=== PATIENT | female | born 1955 | race Two or more races ===

== ENCOUNTER 2023-08-30 15:18 | Inpatient (IN) | payer OTHER ==
[~2023-08-30] VITALS: Ht 165.1 cm; Wt 139.7 kg
[~2023-08-30 15:18] MED LIST: BICILLIN; CATAFLAM50 MG PO; COZAAR50 MG PO; ORPH100T PO; VYTORIN 10-201 EACH PO
[2023-08-30] MEDS ORDERED: PEPCID AC20 MG PO (15:36)
[2023-08-30] MEDS ORDERED: NORVASC5 MG PO (15:36)
[2023-08-30 16:52] LABS: HEMATOCRIT 30.2 % (36.0-45.00); HEMOGLOBIN 10.2 g/dL (12.0-15.00); MEAN CELL VOLUME 93.6 fL (80.00-100.00); MEAN CORPUSCULAR HEMOGLOBIN 31.8 pg (27.00-32.0); MEAN CORPUSCULAR HGB CONC 33.9 g/dl (32.0-36.0); PLATELET COUNT 429 K/uL (150-450); RED BLOOD COUNT 3.22 M/uL (4.00-6.00); RED CELL DISTRIBUTION WIDTH 13.3 % (11.5-14.5)
[2023-08-30 17:11] LABS: CALCIUM 10.4 mg/dL (8.5-10.1); CREATININE SERUM 0.98 mg/dL (0.55-1.02); GFR 56.78; POTASSIUM 3.6 mEq/L (3.5-5.1)
[2023-08-30 17:39] LABS: INR 1.18; PARTIAL THROMBOPLASTIN TIME 31.9 SECONDS (22.0-34.0); PROTHROMBIN TIME 12.2 SECONDS (9.0-11.5)
[2023-08-30 18:30] LABS: URINE APPEARANCE Clear; URINE BILIRRUBIN Negative (NEGATIVE); URINE BLOOD Moderate; URINE COLOR Dark Yellow; URINE GLUCOSE Negative (NEGATIVE); URINE LEUKOCYTE Trace; URINE NITRATE Negative
[2023-08-30 18:33] LABS: URINE BACTERIA 40.3 uL (0.0-1933); URINE EPITHELIAL CELLS 20.5 uL (0.0-38.8); URINE WBC 44.5 uL (0.0-23.2)
[2023-08-30 19:05] LABS: URINE MUCUS MODERATE; URINE PROTEIN 300 (NEGATIVE)
[2023-08-31 01:10] LABS: ABG PH 7.438 (7.35-7.45); ABG PO2 95.3 mmHg (80-100); ABG pCO2 35.9 mmHg (35-45); BASE EXCESS 0 mmol/l; BICARBONATE 23.7 mmol/l (23-25); SaO2 97.7 %; Tco2 24.8 mmol/l; allen test SATISFACTORY; o2 21 %; puncture site RADIAL LEFT
[2023-08-31 07:40] LABS: ALBUMIN 2.7 gm/dL (3.4-5.0); BILIRUBIN TOTAL 0.47 mg/dL (0.3-1.2); BILIRUBIN,CONJUGATED 0.13 mg/dL (0.0-0.2); BILIRUBIN,UNCONJUGATED 0.34 mg/dL (0.0-0.6); TOTAL PROTEIN 7.2 gm/dL (6.4-8.2)
[2023-09-01 08:40] LABS: BILIRUBIN TOTAL 0.72 mg/dL (0.3-1.2); CALCIUM 10.3 mg/dL (8.5-10.1); CREATININE SERUM 1.07 mg/dL (0.55-1.02); GFR 51.3; GLOBULINA 4.2 G/DL (2.4-3.5); MAGNESIUM 1.9 mg/dL (1.8-2.4); PHOSPHOROUS 4.1 mg/dL (2.5-4.9); POTASSIUM 4.49 mEq/L (3.5-5.1); TOTAL PROTEIN 8.2 gm/dL (6.4-8.2)
[2023-09-01 09:16] LABS: HEMATOCRIT 25.2 % (36.0-45.00); MEAN CORPUSCULAR HGB CONC 34.2 g/dl (32.0-36.0); PLATELET COUNT 358 K/uL (150-450); RED BLOOD COUNT 2.71 M/uL (4.00-6.00); RED CELL DISTRIBUTION WIDTH 13.2 % (11.5-14.5)
[2023-09-01 11:33] LABS: MEAN CORPUSCULAR HEMOGLOBIN 31.7 pg (27.00-32.0)
[2023-09-01 11:34] LABS: HEMOGLOBIN 8.6 g/dL (12.0-15.00)
[2023-09-01 19:25] LABS: CALCIUM 9.8 mg/dL (8.5-10.1); CHOL HDL RATIO 6.3 (0-5.0); CREATININE SERUM 1.27 mg/dL (0.55-1.02); GFR 42.1; POTASSIUM 4.25 mEq/L (3.5-5.1)
[2023-09-02 07:19] LABS: HEMATOCRIT 27.5 % (36.0-45.00); HEMOGLOBIN 9.4 g/dL (12.0-15.00); MEAN CELL VOLUME 93.8 fL (80.00-100.00); MEAN CORPUSCULAR HGB CONC 34.1 g/dl (32.0-36.0); PLATELET COUNT 347 K/uL (150-450); RED BLOOD COUNT 2.93 M/uL (4.00-6.00); RED CELL DISTRIBUTION WIDTH 13.5 % (11.5-14.5)
[2023-09-02 07:48] LABS: ALBUMIN 4.2 gm/dL (3.4-5.0); BILIRUBIN TOTAL 0.61 mg/dL (0.3-1.2); CALCIUM 10.3 mg/dL (8.5-10.1); CREATININE SERUM 1.49 mg/dL (0.55-1.02); GFR 35.01; GLOBULINA 4.4 G/DL (2.4-3.5); POTASSIUM 3.77 mEq/L (3.5-5.1); TOTAL PROTEIN 8.6 gm/dL (6.4-8.2)
[2023-09-02 21:21] LABS: TP PERITONEAL FLUID 6.8 g/dl
[2023-09-04 06:54] LABS: HEMATOCRIT 28.5 % (36.0-45.00); MEAN CELL VOLUME 89.6 fL (80.00-100.00); MEAN CORPUSCULAR HEMOGLOBIN 31.4 pg (27.00-32.0); MEAN CORPUSCULAR HGB CONC 35.1 g/dl (32.0-36.0); PLATELET COUNT 444 K/uL (150-450); RED BLOOD COUNT 3.18 M/uL (4.00-6.00); RED CELL DISTRIBUTION WIDTH 13.6 % (11.5-14.5)
[2023-09-04 07:12] LABS: ALBUMIN 3.5 gm/dL (3.4-5.0); BILIRUBIN TOTAL 0.46 mg/dL (0.3-1.2); CALCIUM 10.3 mg/dL (8.5-10.1); CREATININE SERUM 1.6 mg/dL (0.55-1.02); GFR 32.25; GLOBULINA 4.9 G/DL (2.4-3.5); MAGNESIUM 2.7 mg/dL (1.8-2.4); PHOSPHOROUS 3.5 mg/dL (2.5-4.9); POTASSIUM 3.57 mEq/L (3.5-5.1); TOTAL PROTEIN 8.4 gm/dL (6.4-8.2)
[2023-09-06 06:50] LABS: HEMATOCRIT 30.2 % (36.0-45.00); HEMOGLOBIN 10.3 g/dL (12.0-15.00); MEAN CELL VOLUME 91.6 fL (80.00-100.00); MEAN CORPUSCULAR HEMOGLOBIN 31.2 pg (27.00-32.0); PLATELET COUNT 463 K/uL (150-450); RED CELL DISTRIBUTION WIDTH 13.9 % (11.5-14.5)
[2023-09-06 07:16] LABS: ALBUMIN 3.1 gm/dL (3.4-5.0); BILIRUBIN TOTAL 0.45 mg/dL (0.3-1.2); CALCIUM 10.2 mg/dL (8.5-10.1); CREATININE SERUM 1.37 mg/dL (0.55-1.02); GFR 38.57; GLOBULINA 5.2 G/DL (2.4-3.5); MAGNESIUM 3.3 mg/dL (1.8-2.4); TOTAL PROTEIN 8.3 gm/dL (6.4-8.2)
[2023-09-06 08:37] LABS: POTASSIUM 2.94 mEq/L (3.5-5.1)
== END 2023-09-06 16:00 | disposition designated cancer center or children's hospital (05) | DRG 948 ==
LOC: ER 15:18 → SURH 23:56
PROVIDERS: General Practice; Internal Medicine Nephrology; Radiology Vascular & Interventional Radiology; ADMIT Internal Medicine; ATTEND Internal Medicine
PROC: BW21YZZ Computerized Tomography (CT Scan) of Abdomen and Pelvis using Other Contrast (ICD-10-PCS; principal; 2023-08-30)
PROC: BW40ZZZ Ultrasonography of Abdomen (ICD-10-PCS; 2023-08-30)
PROC: 4A12X4Z Monitoring of Cardiac Electrical Activity, External Approach (ICD-10-PCS; 2023-08-31)
PROC: 0W9G3ZZ Drainage of Peritoneal Cavity, Percutaneous Approach (ICD-10-PCS; 2023-09-02)
DX: R18.8 Other ascites (principal); C79.9 Secondary malignant neoplasm of unspecified site; K56.600 Partial intestinal obstruction, unspecified as to cause; K63.89 Other specified diseases of intestine; C53.9 Malignant neoplasm of cervix uteri, unspecified